=== PATIENT | female | born 1975 | race Caucasian/White ===

== ENCOUNTER 2017-08-18 14:04 | Emergency (ER) | payer OTHER, MEDICAID, SELFPAY | END 2017-08-18 18:08 | disposition home or self-care (01) | PROVIDERS: Emergency Provider Emergency Medicine; Family Provider Family Medicine; PCP Family Medicine; Visit Provider Emergency Medicine | DX: N20.0 Calculus of kidney (principal) | CPT/HCPCS: 74176; 80053; 81003; 81015; 81025; 85025; 85610; 85730; 96374; 96375; 99058; 99284; J1885; J2405 ==

== ENCOUNTER 2020-03-27 13:30 | Observation (INO) | payer OTHER, MEDICAID, SELFPAY ==
[2020-03-27] VITALS (14 sets, daily range): BP systolic 116–152; BP diastolic 75–91; PULSE 66–80; RESP 9–18; TEMP 36–37.1; O2SAT 93–99; BMI 36.3
--- NOTE | 2020-03-27 13:45 | DI.RAD.S_ITS ---
PROCEDURE: XR FINGER LT MIN 2V INDICATIONS: WOOD SPLITTER INJURY TO DIGIT 5 TECHNIQUE: PA view of the hand and two views of the left small finger. COMPARISON: [facility], , FINGER LT, 10/24/2007, 15:26. FINDINGS: Bones: There is a comminuted fracture at the midshaft of the 5th proximal phalanx with mild dorsal angulation of the distal fragment. The remaining osseous structures are intact. No suspicious bony lesions. Soft tissues: No suspicious soft tissue calcifications. Soft tissue edema is seen surrounding the fracture. IMPRESSION: Comminuted fracture at the midshaft of the 5th proximal phalanx with mild dorsal angulation of the distal fracture fragment and surrounding soft tissue edema. Dictated by: Torin Garcia M.D. on 03/27/2020 at 14:17 Approved by: Torin Garcia M.D. on 03/27/2020 at 14:24
--- NOTE | 2020-03-27 13:59 | ED.GENADULT ---
HPI - General Adult General Chief complaint: Extremity Injury, Upper Stated complaint: Cut left finger Time Seen by Provider: 03/27/20 13:48 Source: patient Mode of arrival: Ambulatory Limitations: no limitations History of Present Illness HPI narrative: Patient is a [id number] female here for evaluation of a left hand injury. She states she was cutting wood with a hydraulic hardwood flooring specialist when she got her left hand caught. Has pain along the left little finger and left portion of her hand. She also sustained a small cut to the area. States that her last tetanus shot was many years ago. Has not tried anything for her symptoms prior to arrival accept covering with a bandage. Related Data Home Medications Medication Instructions Recorded Confirmed sertraline [Zoloft] 50 mg PO QDAY #0 10/24/07 buspirone 0.5 tab PO QDAY #0 08/18/17 meloxicam [Mobic] 15 mg PO AMCC #0 08/18/17 Previous Rx's Medication Instructions Recorded ketorolac 10 mg PO Q6HP PRN #15 tab 08/15/17 tamsulosin [Flomax] 0.4 mg PO QDAY #10 cap 08/15/17 hydrocodone-acetaminophen [[place]] 1 - 2 tab PO Q6HP PRN #10 tab 08/18/17 ondansetron [Zofran ODT] 4 mg SUBLINGUAL Q6HP PRN #10 odt 08/18/17 Allergies Allergy/AdvReac Type Severity Reaction Status Date / Time Sulfa (Sulfonamide Allergy Unknown Verified 03/27/20 15:19 Antibiotics) [SULFA (SULFONAMIDE ANTIBIOTICS)] sulfamethoxazole Allergy Unknown Verified 03/27/20 15:19 [From ] trimethoprim [From ] Allergy Unknown Verified 03/27/20 15:19 SULFA (sulfonamide) Allergy Unknown Uncoded 03/27/20 15:19 Review of Systems Constitutional Constitutional: Denies fever(s) and Denies headache(s) ENT Ears, Nose, Mouth, and Throat: Denies headache(s) Musculoskeletal Musculoskeletal: Denies tingling Comments: Left hand pain Integumentary/Breasts Comments: Cut to the left little finger Neurologic Neurologic: Denies headache(s) and Denies tingling Hematologic/Lymphatic Hematologic/Lymphatic: Denies easy bleeding and Denies easy bruising Patient History Medical History Kidney stone on right side Social History Smoking Status: Current every day smoker Smoking Status: Current every day smoker Substance Use Type: does not use Exam Initial Vital Signs Initial Vital Signs: Vital Signs Temperature 98.7 F 03/27/20 13:39 Pulse Rate 78 03/27/20 13:39 Respiratory Rate 16 03/27/20 13:39 Blood Pressure 138/83 03/27/20 13:39 Pulse Oximetry 98 03/27/20 13:39 Const General: cooperative and comfortable Limitations: mental status not altered HENMT Head: normal to inspection and normocephalic Resp Effort & Inspection: normal respiratory effort Cardio Pulses: radial pulses present on the left Skin Other: Patient has to be what appears to be a superficial cut on the dorsum of the left little finger and what appears to be a 1 cm deeper laceration to the volar aspect of the left little finger. Neuro Sensory Exam: no sensory deficits noted Extrem Other: Tenderness along the left little finger along the metacarpal on left. With limited range of motion secondary to discomfort and some swelling Psych Appearance: grossly normal and well kempt Course Orders Ordered: ED Orders 03/27/20 13:45 XR finger LT min 2V Stat 03/27/20 15:05 COVID19 Stat 03/27/20 15:25 Basic Metabolic Panel Stat Complete Blood Count AUTO DIFF Stat Sodium Chloride (Normal Saline 0.9%) 1,000 mls @ 125 mls/hr IV CONT LYNNETTE Last Admin: 03/27/20 15:49 Dose: 125 mls/hr Documented by: CALVIN Discontinued Medications Diphtheria/Tetanus/Acell Pertussis (Tet,Diph,Pertuss(Acell),Vac/Pf 0.5 Ml Syringe) 0.5 ml IM .ONCE ONE Stop: 03/27/20 13:50 Last Admin: 03/27/20 15:48 Dose: 0.5 ml Documented by: CALVIN Cefazolin Sodium/Dextrose (Ancef) 2 gm in 100 mls @ 200 mls/hr IV NOW ONE Stop: 03/27/20 16:14 Last Admin: 03/27/20 15:50 Dose: 200 mls/hr Documented by: CALVIN Morphine Sulfate (Morphine 4 Mg/Ml Inj) 4 mg IV NOW ONE Stop: 03/27/20 14:52 Last Admin: 03/27/20 15:48 Dose: 4 mg Documented by: CALVIN Vital Signs Vital signs: Vital Signs - 8 hr 03/27/20 13:39 Temperature 98.7 F Pulse Rate 78 Respiratory Rate 16 Blood Pressure 138/83 Pulse Oximetry 98 Medical Decision Making Lab Data Lab results reviewed: Yes I reviewed the patient's lab results. Result diagrams: 03/27/20 15:25 03/27/20 15:25 Labs: Lab Results 03/27/20 Range/Units 15:05 COVID-19 PCR Negative (Negative) Imaging Data Extremity x-ray #1: Radiologist's Impression: [address] [id number] ReportSigned Patient: Ly Arthur LMR#: [id number]: [id number]:[id number]/Sex: 44 / FDate of Service: 03/27/20Loc: EDAccession Number: [id number] Procedure: XR finger LT min 2V Ordering Provider: Juaquin Conde D.O. PROCEDURE: XR FINGER LT MIN 2V INDICATIONS: WOOD SPLITTER INJURY TO DIGIT 5 TECHNIQUE: PA view of the hand and two views of the left small finger. [facility] FINDINGS: Bones: There is a comminuted fracture at the midshaft of the 5th proximal phalanx with mild dorsal angulation of the distal fragment. The remaining osseous structures are intact. No suspicious bony lesions. Soft tissues: No suspicious soft tissue calcifications. Soft tissue edema is seen surrounding the fracture. IMPRESSION: Comminuted fracture at the midshaft of the 5th proximal phalanx with mild dorsal angulation of the distal fracture fragment and surrounding soft tissue edema. Dictated by: Torin Garcia M.D. on 03/27/2020 at 14:17 Approved by: Torin Garcia M.D. on 03/27/2020 at 14:24 [facility] Narrative Medical decision making narrative: Patient's tetanus was updated. The x-ray shows a comminuted fracture of the proximal phalanx of the left little finger. She does have skin wounds on both the volar and dorsal aspect over the fracture. The 1 on the dorsal aspect does appear to be superficial however with inspection of the volar aspect it does appear to be through the skin and given the fracture the concern would be for an open fracture. I did discuss the case with Dr. Allison with Orthopedics who stated that the patient would need a washout and pinning. She was given antibiotics. Patient was informed of the findings and the need for surgery. She was placed NPO. Given pain medication. Will be admitted for surgery for further evaluation and treatment. Discharge Plan Departure Patient Disposition: Admitted as Observation Clinical Impression: Fracture of finger of left hand Qualifiers: Encounter type: initial encounter Finger: little finger Fracture type: open Phalanx: proximal Fracture alignment: displaced Qualified Code(s): S62.617B - Displaced fracture of proximal phalanx of left little finger, initial encounter for open fracture Admit Date/Time: 03/27/20 15:14 Admit Provider: Bandar Allison
[2020-03-27 15:36] LABS: Add Manual Diff / Slide Review NO; Basophils Absolute Auto 0 /uL (0-100); Basophils Percent Auto 0.5 % (0-2); Eosinophils Absolute Auto 100 /uL (0-450); Eosinophils Percent Auto 1.1 % (2-4); Hematocrit 42.7 % (36-46); Hemoglobin 14.7 g/dL (12.0-16.0); Lymphocytes Absolute Auto 3100 /uL (1100-4500); Lymphocytes Percent Auto 34.7 % (25-40); Mean Corpuscular HGB Conc 34.5 % (30-36); Mean Corpuscular Hemoglobin 31.3 PG (26-34); Mean Corpuscular Volume 90.7 fL (80-100); Monocytes Absolute Auto 600 /uL (0-900); Monocytes Percent Auto 7.1 % (3-14); Neutrophils Absolute Auto 5000 /uL (1500-7000); Neutrophils Percent Auto 56.6 % (50-75); Platelet Count 207 X10^3/uL (150-400); Red Blood Cell Count 4.71 X10^6/uL (4.0-5.2); Red Cell Distribution Width 13.1 % (11.6-14.8); White Blood Cell Count 8.9 X10^3/uL (4.5-11.0)
[2020-03-27] MEDS: MORPHINE 4 MG/ML INJ IV (15:48)
[2020-03-27] MEDS: TET,DIPH,PERTUSS(ACELL),VAC/PF 0.5 ML SYRINGE IM (15:48)
[2020-03-27] MEDS: SODIUM CHLORIDE 0.9% 1,000 ML 125 ML IV (15:49)
[2020-03-27] MEDS: CEFAZOLIN 2 GM/100 ML FROZ.PIGGY IV (15:50)
[2020-03-27 15:52] LABS: BUN Creatinine Ratio 26.5 (6-22); Blood Urea Nitrogen 13 mg/dL (7-17); Calcium 10.1 mg/dL (8.4-10.2); Carbon Dioxide 25 mmol/L (22-32); Chloride 108 mmol/L (98-107); Estimated Glomerular Filt Rate > 60.0 mL/min (>60); Glucose 101 mg/dL (70-100); HEMOLYSIS < 15 (0-50); Sodium 139 mmol/L (137-145)
[2020-03-27 15:52] LABS: COVID19 -Nasal RAPID Negative (Negative)
--- NOTE | 2020-03-27 18:02 | PM.HP.1 ---
History of Present Illness History of Present Illness Date Patient Seen: 03/27/20 Time Patient Seen: 18:03 Date of Onset of Symptoms: 03/27/20 Chief complaint: Cut left finger Narrative: Patient is a 44-year-old xhlij-ybkv-[id number] woman who was using a wood splitter today when she got her left hand caught between the wedge and the base plate. She suffered an open wound to her small finger. She came to the [facility] radiographs revealed a comminuted fracture of the mid shaft of her proximal phalanx of her left small finger. Orthopedic consultation has been obtained for definitive management of the open fracture. Patient History Medical History Kidney stone on right side Family & Social History Safety & Behavioral: Feels Safe in Current Yes Environment Been Physically Hurt or No Threatened By a Person Tobacco & Substance use: Smoking Status Current every day smoker Substance Use Type does not use Meds Home Medications and Allergies Home Medications Medication Instructions Recorded Confirmed Type sertraline [Zoloft] 50 mg PO QDAY #0 10/24/07 History ketorolac 10 mg PO Q6HP PRN #15 tab 08/15/17 Rx tamsulosin [Flomax] 0.4 mg PO QDAY #10 cap 08/15/17 Rx buspirone 0.5 tab PO QDAY #0 08/18/17 History hydrocodone-acetaminophen [[place]] 1 - 2 tab PO Q6HP PRN #10 tab 08/18/17 Rx meloxicam [Mobic] 15 mg PO AMCC #0 08/18/17 History ondansetron [Zofran ODT] 4 mg SUBLINGUAL Q6HP PRN #10 odt 08/18/17 Rx hydrocodone-acetaminophen [[place]] 1 tab PO Q4-6H PRN #20 tab 03/27/20 Rx Allergies Allergy/AdvReac Type Severity Reaction Status Date / Time Sulfa (Sulfonamide Allergy Unknown Verified 03/27/20 15:19 Antibiotics) [SULFA (SULFONAMIDE ANTIBIOTICS)] sulfamethoxazole Allergy Unknown Verified 03/27/20 15:19 [From SEPTRA] trimethoprim [From JANRA] Allergy Unknown Verified 03/27/20 15:19 SULFA (sulfonamide) Allergy Unknown Uncoded 03/27/20 15:19 Review of Systems Review of Systems ROS: Yes All systems reviewed with the patient and are negative except as otherwise documented Exam Vital Signs (past 8 hours): - 03/27/20 13:39 Temperature 98.7 F Pulse Rate 78 Respiratory Rate 16 Blood Pressure 138/83 Pulse Oximetry 98 Oxygen Delivery Method Room Air Narrative Exam Narrative: Normocephalic atraumatic. Chest is clear to auscultation. Cardiac exam is regular rate and rhythm. Abdomen is soft nontender with normal bowel bowel sounds and no palpable masses. Extremities examination is notable for the left upper extremity. The small finger is splinted and dressed in a sterile dressing. She has intact but slightly reduced sensation on both the radial and ulnar side of the tip of the small finger. Objective Labs Result Diagrams: 03/27/20 15:25 03/27/20 15:25 Labs: Laboratory Results - last 24 hr 03/27/20 03/27/20 03/27/20 15:05 15:25 15:25 WBC 8.9 RBC 4.71 Hgb 14.7 Hct 42.7 MCV 90.7 MCH 31.3 MCHC 34.5 RDW 13.1 Plt Count 207 Neut % (Auto) 56.6 Lymph % (Auto) 34.7 [place] % (Auto) 7.1 Eos % (Auto) 1.1 L Baso % (Auto) 0.5 Neut # (Auto) 5000 Lymph # (Auto) 3100 [place] # (Auto) 600 Eos # (Auto) 100 Baso # (Auto) 0 Sodium 139 Potassium 4.0 Chloride 108 H Carbon Dioxide 25 BUN 13 Creatinine 0.49 L Estimated GFR > 60.0 BUN/Creatinine Ratio 26.5 H Glucose 101 H Calcium 10.1 COVID-19 PCR Negative Assessment & Plan Assessment & Plan narrative: The patient has an open fracture of the left small finger proximal phalanx. Her neurovascular status appears to be intact grossly. Her tetanus status has been confirmed is up-to-date by the emergency room staff. We will irrigate and debride the wound, likely fix the fracture with crossed K-wires. She will then be splinted. K-wire should remain in place for 4 weeks. The risks benefits and alternatives of this procedure were discussed with her. Risks discussed included but were not limited to: Failure to improve, failure to heal the fracture, stiffness, infection, nerve damage, deep venous thrombosis, pulmonary embolism, stroke, myocardial infarction, permanent paralysis and . COVID-19 COVID-19 status: Negative Result date/Date tested (Pos, Neg/Pending): 03/27/20
[2020-03-27] MEDS: CEFAZOLIN 1 GM/50 ML FROZ.PIGGY IV (18:50)
--- NOTE | 2020-03-27 19:12 | SUR.OPER ---
Supine on padded OR bed, head on pillow, right arm secured on padded arm board at <90 degrees abduction, left arm on large padded arm board controlled by surgeon, legs uncrossed, safety belt at thigh, tape over blanket over lower legs.
[2020-03-27] MEDS: BUPIVACAINE 0.5% (PF) VIAL 30 ML INJ (19:17)
--- NOTE | 2020-03-27 19:42 | PM.OP.1 ---
Operative Date/Time/Diagnoses Date of procedure: 03/27/20 Time of procedure: 19:42 Pre-op diagnosis: Open displaced fracture of left small finger proximal phalanx Post-op diagnosis: other (Closed displaced fracture of left small finger proximal phalanx with skin lacerations) Procedure & Clinicians Procedure: 1. Percutaneous fixation of left small finger proximal phalanx fracture 2. Irrigation and debridement of soft tissue laceration 3. Simple closure of 1 cm wound Same procedure as scheduled: No (The wound did not communicate with the fracture.) Indications: The patient is a 44-year-old woman who was using a wood splitter today when she suffered an injury to the small finger of her left hand. This was initially thought to be an open fracture and therefore urgent irrigation and debridement was scheduled. She agreed to surgery after discussion the risks benefits and alternatives as discussed in my preoperative history and physical. Surgeon: Bandar Allison Click Yes if Unassisted: Yes Anesthesia Type: General and Local Operative Notes Findings: 1 cm wound on the palmar and 1 cm wound on the dorsal aspect of the small finger which did not extend below the dermis. There was a comminuted displaced fracture of the proximal phalanx which was reduced and fixed with 2 K-wires. Closure Type: primary Specimen(s): none sent Prosthetic devices, grafts, tissues, transplants, or devices: Two 0.054 in K-wires. Applied: implant(s) Estimated Blood Loss (mL): 1 Blood products transfused: none Tourniquet time (min): 17 Procedure in detail: The patient was seen in the emergency room where she identified the left small finger as the operative site. She was transferred to the operating room and placed in the operative room table in the supine position. She underwent the induction of general anesthetic. She had received antibiotics in the emergency room and received an additional 1 g of Ancef preoperatively in the OR. A multimedia educational specialist-out was performed. The splint was removed and a tourniquet was placed about her proximal forearm. The hand was prepared from the fingertips to the forearm using Betadine due to the open wounds. The hand was then draped through sterile drapes. The hand was elevated to exsanguinate it and the tourniquet inflated to 250 mm of mercury. The wounds were explored and found to be superficial and without extension deep to the dermis. These were irrigated. The dorsal wounds had a flap of epidermis that was removed and was then basically an abrasion. This was not closed. The palmar wound was more of a laceration measuring about a cm in length and this was closed with a single 3-0 nylon suture at the end of the case. Two 0.054 in K-wires were then placed from distal to proximal across the fracture site while the fracture was held reduced. These provided satisfactory stabilization of the fracture and the entire proximal phalanx moved as a single unit when I flexed and extended the finger. These wires were then bent and cut. All the wounds were dressed with Xeroform. A digital nerve block was performed with 10 mL of 0.5% plain Marcaine. Further dressings of sterile 4x4s, and tube gauze were applied followed by a splint. The tourniquet was deflated during dressing placement for a total tourniquet time of 17 minutes. The patient was then transferred to the recovery room in good condition having tolerated the procedure well. Complications: none Post-operative Condition: stable Disposition: PACU Plan for aftercare: The patient will be discharged this evening. She has been given [place] and Keflex for postoperative pain control and potential wound infection. She will have the K-wires removed in 4 weeks. The sutures will be removed 2 weeks and she will be replaced in the splint. At 4 weeks we will initiate occupational therapy for stiffness.
[2020-03-27] MEDS: fentaNYL 100 MCG/2 ML INJ IV ×2 (19:50→20:00)
[2020-03-27] MEDS: OXYCODONE/ACETAMINOPHEN 5/325 TABLET 1 TAB PO (19:57)
--- NOTE | 2020-04-24 14:57 | PC.NURSE ---
Late entry: IV NS discontinued 1825 hrs.
== END 2020-03-27 20:45 | disposition home or self-care (01) ==
LOC: ED 14:56 → AC 15:18
PROVIDERS: Admitting Provider Orthopaedic Surgery; Emergency Provider Emergency Medicine; Family Provider Family Medicine; PCP Family Medicine; Referring Provider Emergency Medicine; Visit Provider Orthopaedic Surgery
PROC: (CPT 26727; principal; 2020-03-27 19:00)
DX: S62.617A Displaced fracture of proximal phalanx of left little finger, initial encounter for closed fracture (principal); M79.642 Pain in left hand; S61.217A Laceration without foreign body of left little finger without damage to nail, initial encounter; S61.412A Laceration without foreign body of left hand, initial encounter; E66.9 Obesity, unspecified; F17.210 Nicotine dependence, cigarettes, uncomplicated; W31.89XA Contact with other specified machinery, initial encounter; Y93.89 Activity, other specified; Z11.59 Encounter for screening for other viral diseases
CPT/HCPCS: 26727; 12001; 36415; 73140; 80048; 85025; 87635; 90471; 96365; 96366; 96375; 99283; 99284; G0378; 90715; J0690; J1100; J2270; J2405; J2704; J2765; J3010

== ENCOUNTER 2020-08-11 10:07 | Emergency (ER) | payer OTHER, MEDICAID, SELFPAY ==
[2020-08-11 10:19] VITALS: BP 136/69; PULSE 92; RESP 18; TEMP 36.9; O2SAT 98; BMI 37.2
[2020-08-11 10:38] LABS: Add Manual Diff / Slide Review NO; Basophils Absolute Auto 0 /uL (0-100); Basophils Percent Auto 0.3 % (0-2); Eosinophils Absolute Auto 0 /uL (0-450); Eosinophils Percent Auto 0.1 % (2-4); Hematocrit 42.8 % (36-46); Hemoglobin 14.7 g/dL (12.0-16.0); Lymphocytes Absolute Auto 1400 /uL (1100-4500); Lymphocytes Percent Auto 10.2 % (25-40); Mean Corpuscular HGB Conc 34.2 % (30-36); Mean Corpuscular Hemoglobin 31.5 PG (26-34); Mean Corpuscular Volume 91.8 fL (80-100); Monocytes Absolute Auto 900 /uL (0-900); Monocytes Percent Auto 6.4 % (3-14); Neutrophils Absolute Auto 11100 /uL (1500-7000); Platelet Count 186 X10^3/uL (150-400); Red Blood Cell Count 4.66 X10^6/uL (4.0-5.2); Red Cell Distribution Width 12.6 % (11.6-14.8); White Blood Cell Count 13.4 X10^3/uL (4.5-11.0)
--- NOTE | 2020-08-11 10:42 | ED_ITS ---
HPI - Abdominal Pain General Chief Complaint: Abdominal Pain Stated Complaint: LOWER ABDOMINAL PAIN FOR 3 DAYS, WORSENING Time Seen by Provider: 08/11/20 10:10 Source: patient Mode of arrival: Family Vehicle Limitations: no limitations History of Present Illness HPI narrative: 44-year-old female daily smoker with noncontributory medical history presents with a chief complaint of 3 days of gradually worsening left lower quadrant pain. Her pain was gradual in onset and has been gradually worsening. Her pain is worse with motion and improves with rest. She denies any radiation of her pain. She states that even bumps in the road on her drive in seem to worsen her symptoms. She has been nauseated but denies any vomiting. She denies any constipation or diarrhea. She denies dysuria, frequency or urgency. She has had no vaginal bleeding or discharge MD complaint: abdominal pain Onset (ago): day(s) Pain Consistency: constant Location: LLQ Severity: moderate Quality: aching Radiation: none Related Data Home Medications Medication Instructions Recorded Confirmed sertraline [Zoloft] 100 mg PO QDAY #0 10/24/07 08/11/20 buspirone 0.5 tab PO QDAY #0 08/18/17 meloxicam [Mobic] 15 mg PO AMCC #0 08/18/17 Previous Rx's Medication Instructions Recorded ketorolac 10 mg PO Q6HP PRN #15 tab 08/15/17 tamsulosin [Flomax] 0.4 mg PO QDAY #10 cap 08/15/17 hydrocodone-acetaminophen [Cavalier] 1 - 2 tab PO Q6HP PRN #10 tab 08/18/17 ondansetron [Zofran ODT] 4 mg SUBLINGUAL Q6HP PRN #10 odt 08/18/17 hydrocodone-acetaminophen [Cavalier] 1 tab PO Q4-6H PRN #20 tab 03/27/20 amoxicillin-pot clavulanate 1 tab PO BID #20 tab 08/11/20 [Augmentin] hydrocodone-acetaminophen 1 tab PO Q4-6H PRN #10 tab 08/11/20 hyoscyamine sulfate 0.125 mg PO BID-QID PRN #20 tab 08/11/20 ondansetron 4 mg PO TID-QID PRN #10 tab 08/11/20 Allergies Allergy/AdvReac Type Severity Reaction Status Date / Time Sulfa (Sulfonamide Allergy Unknown Verified 08/11/20 10:18 Antibiotics) [SULFA (SULFONAMIDE ANTIBIOTICS)] sulfamethoxazole Allergy Unknown Verified 08/11/20 10:18 [From ] trimethoprim [From ] Allergy Unknown Verified 08/11/20 10:18 Review of Systems Constitutional Constitutional: Denies chills, Denies fatigue, Denies fever(s), Denies frequent falls, Denies lethargy and Denies weakness Eyes Eyes: Denies change in vision, Denies eye discharge, Denies irritation and Denies loss of vision ENT Ears, Nose, Mouth, and Throat: Denies change in voice, Denies dizziness, Denies neck pain, Denies sore throat and Denies throat swelling Cardiovascular Cardiovascular: Denies chest pain, Denies irregular heart rhythm, Denies lightheadedness, Denies palpitations, Denies dyspnea, Denies dyspnea on exertion and Denies orthopnea Respiratory Respiratory: Denies cough, Denies dyspnea, Denies dyspnea on exertion and Denies wheezing Gastrointestinal Gastrointestinal: Reports abdominal pain, Denies change in bowel habits, Denies diarrhea, Denies nausea and Denies vomiting Musculoskeletal Musculoskeletal: Denies neck pain and Denies numbness Integumentary/Breasts Skin/Breast: Denies pruritus, Denies erythema, Denies rash and Denies wounds Neurologic Neurologic: Denies behavioral changes, Denies confusion, Denies dizziness, Denies frequent falls, Denies loss of vision, Denies numbness and Denies weakness Psychiatric Psychiatric: Denies anxiety, Denies behavioral changes, Denies confusion, Denies depression, Denies homicidal ideation and Denies suicidal ideation Endocrine Endocrine: Denies fatigue, Denies flushing and Denies palpitations Hematologic/Lymphatic Hematologic/Lymphatic: Denies easy bruising Allergic/Immunologic Allergic/Immunologic: Denies urticaria, Denies throat swelling and Denies wheezing Patient History Medical History Kidney stone on right side Social History Smoking Status: Current every day smoker Smoking Status: Current every day smoker tobacco type: cigarettes alcohol intake frequency: 0-2 drinks per day Substance Use Type: does not use Exam Narrative Exam Narrative: GENERAL: 44 [] year old patient appears stated age. Well- nourished, well-developed patient, in mild distress. Obviously in pain, rubbing her left lower abdomen HEAD: Atraumatic. Normocephalic. EYES: Pupils equal round and reactive. Extraocular motions intact. No scleral icterus. No injection or drainage. ENT: Nose without bleeding, purulent drainage. Throat without erythema, tonsillar hypertrophy or exudate. Airway patent. NECK: Trachea midline. Non tender CARDIOVASCULAR: Regular rate and rhythm without murmurs, gallops, or rubs. RESPIRATORY: Clear to auscultation. Breath sounds equal bilaterally. No wheezes, rales, or rhonchi. GASTROINTESTINAL: Abdomen soft, tender left lower quadrant, no rebound, nondistended. EXTREMITIES: No edema or joint tenderness. BACK: Nontender without deformity or crepitance. No flank tenderness. NEURO: AOx3. SKIN: No rash or erythema of visible areas Initial Vital Signs Initial Vital Signs: Vital Signs Temperature 98.4 F 08/11/20 10:19 Pulse Rate 92 H 08/11/20 10:19 Respiratory Rate 18 08/11/20 10:19 Blood Pressure 136/69 08/11/20 10:19 Pulse Oximetry 98 08/11/20 10:19 Course Orders Ordered: Discontinued Medications Sodium Chloride (Normal Saline 0.9%) 1,000 mls @ 1,000 mls/hr IV BOLUS ONE Stop: 08/11/20 11:49 Last Infusion: 08/11/20 12:39 Dose: 0 mls/hr Documented by: Admin: 08/11/20 11:45 Dose: 1,000 mls/hr Documented by: KELSI Ketorolac Tromethamine (Ketorolac 60 Mg/2 Ml Vial) 15 mg IV NOW ONE Stop: 08/11/20 10:51 Last Admin: 08/11/20 11:46 Dose: 15 mg Documented by: KELSI Vital Signs Vital signs: Vital Signs - 8 hr 08/11/20 12:40 Pulse Rate 75 Respiratory Rate 18 Blood Pressure 121/67 Pulse Oximetry 98 MDM - Abdominal Pain Lab Data Result diagrams: 08/11/20 10:25 08/11/20 10:25 Labs: Lab Results 08/11/20 08/11/20 08/11/20 Range/Units 10:25 10:25 10:25 WBC 13.4 H (4.5-11.0) X10^3/uL RBC 4.66 (4.0-5.2) X10^6/uL Hgb 14.7 (12.0-16.0) g/dL Hct 42.8 (36-46) % MCV 91.8 (80-100) fL MCH 31.5 (26-34) PG MCHC 34.2 (30-36) % RDW 12.6 (11.6-14.8) % Plt Count 186 (150-400) X10^3/uL Neut % (Auto) 83.0 H (50-75) % Lymph % (Auto) 10.2 L (25-40) % [place] % (Auto) 6.4 (3-14) % Eos % (Auto) 0.1 L (2-4) % Baso % (Auto) 0.3 (0-2) % Neut # (Auto) 43793 H (1528-1367) /uL Lymph # (Auto) 1400 (4792-7708) /uL [place] # (Auto) 900 (0-900) /uL Eos # (Auto) 0 (0-450) /uL Baso # (Auto) 0 (0-100) /uL PT 12.1 (10.1-12.7) SECONDS INR 1.1 (0.9-1.3) APTT 38 H (26.4-36.2) SECONDS Sodium 138 (137-145) mmol/L Potassium 4.0 (3.4-5.1) mmol/L Chloride 105 (98-107) mmol/L Carbon Dioxide 24 (22-32) mmol/L BUN 12 (7-17) mg/dL Creatinine 0.45 L (0.52-1.04) mg/dL Estimated GFR > 60.0 (>60) mL/min BUN/Creatinine Ratio 26.7 H (6-22) Glucose 138 H (70-100) mg/dL Calcium 10.2 (8.4-10.2) mg/dL Total Bilirubin 1.0 (0.2-1.3) mg/dL AST 20 (14-36) IU/L ALT 23 (<35) IU/L Alkaline Phosphatase 65 (38-126) U/L Total Protein 7.4 (6.3-8.2) g/dL Albumin 4.4 (3.5-5.0) g/dL Globulin 3.0 (1.7-4.1) g/dL Albumin/Globulin Ratio 1.5 (1.0-2.8) Lipase 55 (23-300) U/L Point of care testing: Point of Care Testing Test Results Negative Urine Dip Bedside Urine Glucose Negative Bedside Urine Bilirubin - Negative Bedside Urine Ketone - Negative Urine Specific [place] 1.015 Bedside Urine Occult Blood - Negative Bedside Urine pH 8 Bedside Urine Protein - Negative Bedside Urine Urobilinogen - Negative Bedside Urine Nitrite - Negative Bedside Urine Leukocytes - Negative Esterase Imaging Data CT scan - abdomen/pelvis: Radiologist's Impression: [address] [id number] Scan ReportSigned Patient: Ly Arthur LMR#: [id number]: [id number]:[id number]/Sex: 44 / FDate of Service: 08/11/20Loc: EDAccession Number: [id number] Procedure: CT abdomen pelvis w con Ordering Provider: Tien Lloyd D.O. PROCEDURE: CT ABDOMEN PELVIS W CON INDICATIONS: severe LLQ pain TECHNIQUE: After the administration of intravenous contrast, 5 mm thick sections acquired from the diaphragm to the symphysis. 5 mm coronal and sagittal reformats were acquired. For radiation dose reduction, the following was used: automated exposure control, adjustment of mA and/or kV according to patient size. COMPARISON: None. FINDINGS: Image quality: Excellent. ABDOMEN: Lung bases: Lung bases are clear. Heart size is normal. Solid organs: Liver is normal in size and enhancement. Gallbladder wall is not thickened. Biliary system is non dilated. Pancreas enhances normally. Spleen is normal in size and enhancement. No adrenal nodules. Kidneys demonstrate normal size and enhancement, without hydronephrosis. Peritoneum and bowel: In this patient with this given history, scrutiny is given to the sigmoid colon and the left lower quadrant of the abdomen. There is focal wall thickening seen involving the sigmoid colon, with diverticular formation within this region. There is moderate surrounding inflammatory change seen. No tracy free air can be seen. A small amount of free fluid can be seen, yet without loculated fluid to suggest abscess. No dilated loops of small bowel are seen. No other areas of bowel wall thickening are detected. Nodes and vessels: No retroperitoneal or mesenteric adenopathy by size criteria. Aorta and inferior vena cava are normal in size. Miscellaneous: No ventral hernias. PELVIS: Genitourinary: Bladder wall thickness is normal. An IUD is seen at its e xpected location. Is a prominent right-sided uterine fibroid seen measuring nearly 9 cm. Miscellaneous: No inguinal hernias or adenopathy. Bones: No suspicious bony lesions. No vertebral body compression fractures. IMPRESSION: Sigmoid diverticulitis, without findings perforation or abscess. Incidental note is made of: IUD Prominent right-sided uterine fibroid Dictated by: Jaswant Rodriguez M.D. on 08/11/2020 at 10:55 Approved by: Jaswant Rodriguez M.D. on 08/11/2020 at 10:57 [facility] Narrative Medical decision making narrative: Patient with classic history and physical exam for diverticulitis. CT scan shows evidence of diverticulitis without abscess or perforation. Slight elevation of white blood cells but otherwise reassuring labs. Patient pain well controlled, vitals are stable, no signs of sepsis. She is given extensive return precautions and understands the diagnosis and plan. She has had questions answered to her apparent satisfaction Discharge Plan Departure Patient Disposition: Home Clinical Impression: Diverticulitis Instructions: DI for Diverticulitis Activity Restrictions/Additional Instructions: *You have been diagnosed with [mild diverticulitis without sign of abscess or perforation.] *What to do: *Take medications as directed: Prescription sent to [facility] * please consider a clear liquid diet for the next 24-48 hours and then advance slowly as tolerated *Follow up with your primary care provider in 2-3 days, call for an appointment. Let them know you were seen in the Emergency Department and that we ask that you be seen in follow up *Return to ER if you should have any new, worsening or concerning symptoms, such as [fever, shaking chills, worsening pain, persistent vomiting or other bothersome symptoms] Prescriptions: New hydrocodone-acetaminophen 5-325 mg tablet 1 tab PO Q4-6H PRN (Reason: pain) Qty: 10 RF: 0 hyoscyamine sulfate 0.125 mg tablet 0.125 mg PO BID-QID PRN (Reason: dyspepsia) Qty: 20 RF: 0 ondansetron 4 mg tablet,disintegrating 4 mg PO TID-QID PRN (Reason: nausea and vomiting) Qty: 10 RF: 0 amoxicillin-pot clavulanate [Augmentin] 875-125 mg tablet 1 tab PO BID Qty: 20 RF: 0 No Action sertraline [Zoloft] 50 MG tablet 100 mg PO QDAY Qty: 0 RF: 0 ketorolac 10 MG tablet 10 mg PO Q6HP PRNQty: 15 RF: 0 tamsulosin [Flomax] 0.4 MG capsule,extended release 24hr 0.4 mg PO QDAY Qty: 10 RF: 0 meloxicam [Mobic] 15 MG tablet 15 mg PO AMCC Qty: 0 RF: 0 buspirone 15 MG tablet 0.5 tab PO QDAY Qty: 0 RF: 0 hydrocodone-acetaminophen [Cavalier] 5 MG/325 MG tablet 1 - 2 tab PO Q6HP PRNQty: 10 RF: 0 ondansetron [Zofran ODT] 4 MG tablet,disintegrating 4 mg Sublingual Q6HP PRNQty: 10 RF: 0 hydrocodone-acetaminophen [Cavalier] 5-325 mg tablet 1 tab PO Q4-6H PRN (Reason: pain) Qty: 20 RF: 0 Referrals: Ginger Mancini ARNP [Primary Care Provider] -
--- NOTE | 2020-08-11 10:50 | DI.CT.S_ITS ---
PROCEDURE: CT ABDOMEN PELVIS W CON INDICATIONS: severe LLQ pain TECHNIQUE: After the administration of intravenous contrast, 5 mm thick sections acquired from the diaphragm to the symphysis. 5 mm coronal and sagittal reformats were acquired. For radiation dose reduction, the following was used: automated exposure control, adjustment of mA and/or kV according to patient size. COMPARISON: None. FINDINGS: Image quality: Excellent. ABDOMEN: Lung bases: Lung bases are clear. Heart size is normal. Solid organs: Liver is normal in size and enhancement. Gallbladder wall is not thickened. Biliary system is non dilated. Pancreas enhances normally. Spleen is normal in size and enhancement. No adrenal nodules. Kidneys demonstrate normal size and enhancement, without hydronephrosis. Peritoneum and bowel: In this patient with this given history, scrutiny is given to the sigmoid colon and the left lower quadrant of the abdomen. There is focal wall thickening seen involving the sigmoid colon, with diverticular formation within this region. There is moderate surrounding inflammatory change seen. No tracy free air can be seen. A small amount of free fluid can be seen, yet without loculated fluid to suggest abscess. No dilated loops of small bowel are seen. No other areas of bowel wall thickening are detected. Nodes and vessels: No retroperitoneal or mesenteric adenopathy by size criteria. Aorta and inferior vena cava are normal in size. Miscellaneous: No ventral hernias. PELVIS: Genitourinary: Bladder wall thickness is normal. An IUD is seen at its expected location. Is a prominent right-sided uterine fibroid seen measuring nearly 9 cm. Miscellaneous: No inguinal hernias or adenopathy. Bones: No suspicious bony lesions. No vertebral body compression fractures. IMPRESSION: Sigmoid diverticulitis, without findings perforation or abscess. Incidental note is made of: IUD Prominent right-sided uterine fibroid Dictated by: Jaswant Rodriguez M.D. on 08/11/2020 at 10:55 Approved by: Jaswant Rodriguez M.D. on 08/11/2020 at 10:57
[2020-08-11 11:00] LABS: INR 1.1 (0.9-1.3); Prothrombin Time 12.1 SECONDS (10.1-12.7)
[2020-08-11 11:02] LABS: PTT Partial Thromboplastin Tim 38 SECONDS (26.4-36.2)
[2020-08-11 11:04] LABS: Alanine Aminotransferase 23 IU/L (<35); Albumin 4.4 g/dL (3.5-5.0); Albumin Globulin Ratio 1.5 (1.0-2.8); Alkaline Phosphatase 65 U/L (38-126); Aspartate Aminotransferase 20 IU/L (14-36); BUN Creatinine Ratio 26.7 (6-22); Blood Urea Nitrogen 12 mg/dL (7-17); Calcium 10.2 mg/dL (8.4-10.2); Carbon Dioxide 24 mmol/L (22-32); Chloride 105 mmol/L (98-107); Estimated Glomerular Filt Rate > 60.0 mL/min (>60); Glucose 138 mg/dL (70-100); HEMOLYSIS < 15 (0-50); Lipase 55 U/L (23-300); Sodium 138 mmol/L (137-145); Total Protein 7.4 g/dL (6.3-8.2)
[2020-08-11] MEDS: SODIUM CHLORIDE 0.9% 1,000 ML 1000 ML IV (11:45)
[2020-08-11] MEDS: KETOROLAC 60 MG/2 ML VIAL 15 MG IV (11:46)
[2020-08-11 12:40] VITALS: BP 121/67; PULSE 75; RESP 18; O2SAT 98
== END 2020-08-11 12:41 | disposition home or self-care (01) ==
PROVIDERS: Emergency Provider Emergency Medicine; Family Provider Family Medicine; PCP Internal Medicine
DX: K57.92 Diverticulitis of intestine, part unspecified, without perforation or abscess without bleeding (principal); R11.0 Nausea
CPT/HCPCS: 36415; 74177; 80053; 81003; 81025; 83690; 85025; 85610; 85730; 93005; 96361; 96374; 99284; J1885; Q9967

== ENCOUNTER → 2020-08-17 10:37 | Outpatient (CLI) | payer OTHER, MEDICAID, SELFPAY ==
[2020-08-17] MEDS: COVID-19 VACC #1, MRNA(MOD) 100 MCG/0.5 ML VIAL IM (10:47)
== END ==
PROVIDERS: Family Provider Family Medicine; PCP Internal Medicine; Visit Provider Internal Medicine
DX: Z23 Encounter for immunization (principal)
CPT/HCPCS: 0011A; 91301

== ENCOUNTER → 2020-09-12 09:57 | Outpatient (CLI) | payer OTHER, MEDICAID, SELFPAY ==
[2020-09-12] MEDS: COVID-19 VACC #2, MRNA(MOD) 100 MCG/0.5 ML VIAL IM (10:11)
== END ==
PROVIDERS: Family Provider Family Medicine; PCP Internal Medicine; Visit Provider Internal Medicine
DX: Z23 Encounter for immunization (principal)
CPT/HCPCS: 0012A; 91301

== ENCOUNTER 2020-09-17 09:45 | Emergency (ER) | payer OTHER, MEDICAID, SELFPAY ==
[2020-09-17] VITALS (12 sets, daily range): BP systolic 105–136; BP diastolic 60–87; PULSE 67–85; RESP 14–16; TEMP 36.6–37; O2SAT 95–99; BMI 36.2
--- NOTE | 2020-09-17 09:48 | ED.ABDPAIN ---
HPI - Abdominal Pain General Chief Complaint: Abdominal Pain Stated Complaint: stomach pain, started yesterday afternoon Time Seen by Provider: 09/17/20 09:47 Source: patient Mode of arrival: Ambulatory Limitations: no limitations History of Present Illness HPI narrative: 44-year-old female daily smoker with recent history of diverticulitis presents with a chief complaint of 24 hours of severe left lower quadrant pain. She states it started suddenly yesterday and seems to be made worse by moving and improved by rest. She states on some levels of feels like what her diverticulitis did but is more intense and severe. She states that she had taken all of her medications as prescribed and her symptoms had resolved with her diverticulitis prior to the pain which brings her in today. She denies any vaginal bleeding or discharge. She denies dysuria, frequency or urgency. She denies any radiation of the pain, states that sharp and stabbing and is rather persistent. She denies fever chills, change in diet or any other new medications MD complaint: abdominal pain Onset (ago): hour(s) Pain Consistency: constant Location: LLQ Severity: severe Quality: stabbing Relieving factors: rest Exacerbating factors: movement Associated symptoms: nausea Related Data Home Medications Medication Instructions Recorded Confirmed sertraline [Zoloft] 100 mg PO QDAY #0 10/23/09/17/20 Previous Rx's Medication Instructions Recorded amoxicillin-pot clavulanate 1 tab PO BID #20 tab 09/17/20 [Augmentin] hydrocodone-acetaminophen 1 tab PO Q4-6H PRN #10 tab 09/17/20 ondansetron 4 mg PO TID-QID PRN #10 tab 09/17/20 Allergies Allergy/AdvReac Type Severity Reaction Status Date / Time Sulfa (Sulfonamide Allergy Unknown Verified 09/17/20 09:55 Antibiotics) [SULFA (SULFONAMIDE ANTIBIOTICS)] sulfamethoxazole Allergy Unknown Verified 09/17/20 09:55 [From ] trimethoprim [From ] Allergy Unknown Verified 09/17/20 09:55 Review of Systems Constitutional Constitutional: Denies chills, Denies fatigue, Denies fever(s), Denies frequent falls, Denies lethargy and Denies weakness Eyes Eyes: Denies change in vision, Denies eye discharge, Denies irritation and Denies loss of vision ENT Ears, Nose, Mouth, and Throat: Denies change in voice, Denies dizziness, Denies neck pain, Denies sore throat and Denies throat swelling Cardiovascular Cardiovascular: Denies chest pain, Denies irregular heart rhythm, Denies lightheadedness, Denies palpitations, Denies dyspnea, Denies dyspnea on exertion and Denies orthopnea Respiratory Respiratory: Denies cough, Denies dyspnea, Denies dyspnea on exertion and Denies wheezing Gastrointestinal Gastrointestinal: Reports abdominal pain, Denies change in bowel habits, Denies diarrhea, Denies nausea and Denies vomiting Musculoskeletal Musculoskeletal: Denies neck pain and Denies numbness Integumentary/Breasts Skin/Breast: Denies pruritus, Denies erythema, Denies rash and Denies wounds Neurologic Neurologic: Denies behavioral changes, Denies confusion, Denies dizziness, Denies frequent falls, Denies loss of vision, Denies numbness and Denies weakness Psychiatric Psychiatric: Denies anxiety, Denies behavioral changes, Denies confusion, Denies depression, Denies homicidal ideation and Denies suicidal ideation Endocrine Endocrine: Denies fatigue, Denies flushing and Denies palpitations Hematologic/Lymphatic Hematologic/Lymphatic: Denies easy bruising Allergic/Immunologic Allergic/Immunologic: Denies urticaria, Denies throat swelling and Denies wheezing Patient History Medical History Kidney stone on right side Social History Smoking Status: Current every day smoker Smoking Status: Current every day smoker tobacco type: cigarettes alcohol intake frequency: 0-2 drinks per day Substance Use Type: does not use Exam Initial Vital Signs Initial Vital Signs: Vital Signs Temperature 97.8 F 09/17/20 09:45 Pulse Rate 85 09/17/20 09:45 Respiratory Rate 14 09/17/20 09:45 Blood Pressure 124/87 09/17/20 09:45 Pulse Oximetry 99 09/17/20 09:45 Const General: cooperative and well developed Nutritional Appearance: well nourished [facility] Head: normocephalic and atraumatic Ears: external ears normal and TM's normal bilaterally Nose: external nose normal and No nasal discharge Face and sinus: sinuses nontender, face symmetric, no sinus tenderness and No dry mucous membranes Mouth: oral mucosae normal and moist mucous membranes Teeth and gingiva: dentition normal Throat: tonsils normal and uvula midline Eyes General: appearance normal, both eyes and all related structures Eyelids: eyelids normal Conjunctivae: conjunctivae normal Sclera: sclerae normal Pupils: PERRL EOM: EOM intact bilaterally Neck Neck: normal visual inspection, trachea midline, No lymphadenopathy, No midline deformity and No JVD Lymphatic: No lymphedema Chest Chest: normal inspection of the chest Resp Effort & Inspection: normal respiratory effort, able to speak in complete sentences, no respiratory distress and no use of accessory muscles Auscultation: clear to auscultation bilaterally, no rales, no rhonchi and no wheezes Cardio Rate: regular rate Rhythm: regular rhythm Heart Sounds: no click, no gallops, no murmurs and no rubs Pulses: normal peripheral pulses GI Inspection: non-distended Palpation: soft, no hepatosplenomegaly, No guarding, No pulsatile mass and tender (Left lower quadrant) Auscultation: normal bowel sounds Back/Spine/Pelvis Back: No CVA tenderness Cervical Spine: cervical ROM normal and No pain with cervical ROM Thoracic/Lumbar Spine: thoracic and lumbar spine normal to inspection Skin General: no rashes or lesions noted, No jaundice and No petechiae Neuro General: patient alert, patient oriented x3, gait normal and no focal motor deficits Speech: speech normal Extrem General: full ROM, no clubbing, cyanosis or edema, no pedal edema and no calf tenderness Psych Appearance: well kempt Mental Status: mental status grossly normal Attitude: cooperative Thought Content: normal and suicidality Judgment: judgment good Course Orders Ordered: ED Orders 09/17/20 10:10 Complete Blood Count AUTO DIFF Stat Comprehensive Metabolic Panel Stat Lipase Stat 09/17/20 10:42 CT abdomen pelvis w con Stat Discontinued Medications Hydromorphone HCl (Hydromorphone 0.5 Mg Inj) 0.5 mg IV NOW ONE Stop: 09/17/20 11:39 Last Admin: 09/17/20 11:43 Dose: 0.5 mg Documented by: ALYSIA Sodium Chloride (Normal Saline 0.9%) 1,000 mls @ 1,000 mls/hr IV BOLUS ONE Stop: 09/17/20 10:52 Last Infusion: 09/17/20 12:34 Dose: 0 mls/hr Documented by: Admin: 09/17/20 10:18 Dose: 1,000 mls/hr Documented by: KELSI Ketorolac Tromethamine (Ketorolac 30 Mg/Ml Vial) 15 mg IV NOW ONE Stop: 09/17/20 09:54 Last Admin: 09/17/20 10:18 Dose: 15 mg Documented by: KELSI Consultations Consultation #1: 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[place]), requests patient be given her contact info for follow up in clinic regarding the fibroid Vital Signs Vital signs: Vital Signs - 8 hr 09/17/20 11:28 09/17/20 11:29 09/17/20 11:30 Temperature Pulse Rate 71 71 74 Respiratory Rate 16 Blood Pressure 105/60 113/68 Pulse Oximetry 99 98 98 09/17/20 11:46 09/17/20 12:00 09/17/20 13:10 Temperature Pulse Rate 80 70 69 Respiratory Rate Blood Pressure 127/73 129/70 136/76 Pulse Oximetry 98 97 98 09/17/20 13:30 09/17/20 13:54 09/17/20 14:00 Temperature Pulse Rate 67 69 68 Respiratory Rate Blood Pressure 122/66 Pulse Oximetry 96 97 95 09/17/20 14:24 09/17/20 14:31 Temperature 98.6 F Pulse Rate 70 Respiratory Rate 16 Blood Pressure 122/65 Pulse Oximetry 99 MDM - Abdominal Pain Lab Data Result diagrams: 09/17/20 10:10 09/17/20 10:10 Labs: Lab Results 09/17/20 09/17/20 Range/Units 10:10 10:10 WBC 10.3 (4.5-11.0) X10^3/uL RBC 4.61 (4.0-5.2) X10^6/uL Hgb 14.5 (12.0-16.0) g/dL Hct 41.8 (36-46) % MCV 90.8 (80-100) fL MCH 31.5 (26-34) PG MCHC 34.7 (30-36) % RDW 12.6 (11.6-14.8) % Plt Count 226 (150-400) X10^3/uL Neut % (Auto) 69.0 (50-75) % Lymph % (Auto) 21.8 L (25-40) % [place] % (Auto) 7.9 (3-14) % Eos % (Auto) 1.0 L (2-4) % Baso % (Auto) 0.3 (0-2) % Neut # (Auto) 7100 H (6028-7830) /uL Lymph # (Auto) 2200 (4425-9355) /uL [place] # (Auto) 800 (0-900) /uL Eos # (Auto) 100 (0-450) /uL Baso # (Auto) 0 (0-100) /uL Sodium 137 (137-145) mmol/L Potassium 4.0 (3.4-5.1) mmol/L Chloride 106 (98-107) mmol/L Carbon Dioxide 25 (22-32) mmol/L BUN 9 (7-17) mg/dL Creatinine 0.45 L (0.52-1.04) mg/dL Estimated GFR > 60.0 (>60) mL/min BUN/Creatinine Ratio 20.0 (6-22) Glucose 103 H (70-100) mg/dL Calcium 10.5 H (8.4-10.2) mg/dL Total Bilirubin 1.2 (0.2-1.3) mg/dL AST 21 (14-36) IU/L ALT 26 (<35) IU/L Alkaline Phosphatase 71 (38-126) U/L Total Protein 7.6 (6.3-8.2) g/dL Albumin 4.4 (3.5-5.0) g/dL Globulin 3.2 (1.7-4.1) g/dL Albumin/Globulin Ratio 1.4 (1.0-2.8) Lipase 41 (23-300) U/L Point of care testing: Urine Dip Bedside Urine Glucose Negative Bedside Urine Bilirubin - Negative Bedside Urine Ketone - Negative Urine Specific [place] 1.010 Bedside Urine Occult Blood - Negative Bedside Urine pH 6.5 Bedside Urine Protein - Negative Bedside Urine Urobilinogen - Negative Bedside Urine Nitrite - Negative Bedside Urine Leukocytes - Negative Esterase Imaging Data CT scan - abdomen/pelvis: Radiologist's Impression: Ly Arthur 44 F [address] [id number] Scan ReportSigned Patient: Ly Arthur LMR#: [id number]: 1975Acct:[id number]/Sex: 44 / FDate of Service: 09/17/20Loc: EDAccession Number: [id number] Procedure: CT abdomen pelvis w con Ordering Provider: Tine Lloyd D.O. PROCEDURE: CT ABDOMEN PELVIS W CON INDICATIONS: severe LLQ pain, worse than a few weeks ago TECHNIQUE: After the administration of intravenous contrast, 5 mm thick sections acquired from the diaphragm to the symphysis. 5 mm coronal and sagittal reformats were acquired. For radiation dose reduction, the following was used: automated exposure control, adjustment of mA and/or kV according to patient size. COMPARISON: [facility], US, US PELVIC COMPLETE, 09/17/2020, 10:19. [facility], CT, CT ABDOMEN PELVIS W CON, 08/11/2020, 11:33. FINDINGS: Image quality: Excellent. ABDOMEN: Lung bases: Lung bases are clear. Heart size is normal. Solid organs: Liver is enlarged with steatosis. Gallbladder unremarkable. Biliary system is non dilated. Pancreas enhances normally. Spleen is normal in size and enhancement. No adrenal nodules. Kidneys demonstrate normal size and enhancement, without hydronephrosis. Peritoneum and bowel: Bowel loops demonstrate persistent appearance of inflammation in the left lower quadrant, affecting a loop of the sigmoid colon. Overall appearance is similar compared to prior exam. No abscess. Inflammation extends to the left ovary, which appears enlarged compared to the left side. While this was present on prior exam, appearance now demonstrates a more diffuse appearance of low attenuation compared to prior exam. Nodes and vessels: No retroperitoneal or mesenteric adenopathy by size criteria. Aorta and inferior vena cava are normal in size. Miscellaneous: No ventral hernias. PELVIS: Genitourinary: Bladder wall thickness is normal. Uterus is enlarged with lobulation. Miscellaneous: No inguinal hernias or adenopathy. Bones: No suspicious bony lesions. No vertebral body compression fractures. IMPRESSION: 1. Relatively unchanged appearance of sigmoid inflammatory change most suggestive of colitis. No abscess. Appearance is similar to prior exam. 2. Assymetric enlargement of the left ovary, with more prominent decreased attenatuion compared to prior exam. Development of ovarian inflammation or potentially tubo-ovarian abscess cannot be excluded. The findings were discussed with Dr. Tien Llyod on 09/17/2020 at 11:15 a.m. Dictated by: Aissatou Luu M.D. on 09/17/2020 at 10:59 Approved by: Aissatou Luu M.D. on 09/17/2020 at 11:29 US - abdomen: Radiologist's Impression: Ly Arthur 44 F [address] [id number] ReportAddendum Patient: Ly Arthur LMR#: [id number]: 1975Acct:[id number]/Sex: 44 / FDate of Service: 09/17/20Loc: EDAccession Number: [id number] Procedure: US pelvic complete Ordering Provider: Tien Lloyd D.O. ADDENDUMThis report includes an Addendum and supersedes previous reports for this exam. PROCEDURE: US PELVIC COMPLETE INDICATIONS: LEFT LOWER QUADRANT PAIN. EVALUATE IUD PLACEMENT. TECHNIQUE: Real-time scanning was performed of the pelvic organs, with image documentation. Additional endovaginal scanning was necessary due to incomplete visualization of the adnexal and endometrial structures by transabdominal scanning. COMPARISON: [facility], CT, CT ABDOMEN PELVIS W CON, 08/11/2020, 11:33. [facility], CT, CT ABDOMEN PELVIS W CON, 09/17/2020, 10:53. FINDINGS: This study is limited by body habitus and bowel gas. Uterus: Uterus is enlarged at 12.6 x 9.6 x 6.5 cm. The endometrial stripe is not well seen, secondary to a fibroid. The IUD is also not well seen, secondary to the fibroid. There is a 7 x 7.8 x 7.4 cm fibroid seen within the mid uterus intramural. Ovaries: Neither ovary is well seen. Other: No pathologic free abdominal or pelvic fluid. IMPRESSION: The IUD is not well seen on this study. Enlarged uterus, with a 7.8 cm uterine fibroid. Dictated by: Jaswant Rodriguez M.D. on 09/17/2020 at 10:16 Approved by: Jaswant Rodriguez M.D. on 09/17/2020 at 10:18 ADDENDUM: Additional images of the left adnexal region were acquired. On these additional images, no findings of a tubo-ovarian abscess can be seen. Dictated by: Jaswant Rodriguez M.D. on 09/17/2020 at 13:11 Approved by: Jaswant Rodriguez M.D. on 09/17/2020 at 13:11 Addendum Dictated By:Jaswant Rodriguez MDAddendum Signed By:Addendum Cosigned By:DD/ TD/TT: 09/17/20 PROCEDURE: US PELVIC COMPLETE INDICATIONS: LEFT LOWER QUADRANT PAIN. EVALUATE IUD PLACEMENT. TECHNIQUE: Real-time scanning was performed of the pelvic organs, with image documentation. Additional endovaginal scanning was necessary due to incomplete visualization of the adnexal and endometrial structures by transabdominal scanning. COMPARISON: [facility], CT, CT ABDOMEN PELVIS W CON, 08/11/2020, 11:33. [facility], CT, CT ABDOMEN PELVIS W CON, 09/17/2020, 10:53. FINDINGS: This study is limited by body habitus and bowel gas. Uterus: Uterus is enlarged at 12.6 x 9.6 x 6.5 cm. The endometrial stripe is not well seen, secondary to a fibroid. The IUD is also not well seen, secondary to the fibroid. There is a 7 x 7.8 x 7.4 cm fibroid seen within the mid uterus intramural. Ovaries: Neither ovary is well seen. Other: No pathologic free abdominal or pelvic fluid. IMPRESSION: The IUD is not well seen on this study. Enlarged uterus, with a 7.8 cm uterine fibroid. Dictated by: Jaswant Rodriguez M.D. on 09/17/2020 at 10:16 Approved by: Jaswant Rodriguez M.D. on 09/17/2020 at 10:18 MDM Narrative Medical decision making narrative: Patient returns with recurrence of left lower quadrant pain which presented in a slightly more sudden onset and dramatic fashion this time. Multiple diagnoses including kidney stones, ovarian torsion among others considered. Imaging demonstrates a uterine fibroid, normal appearing ovaries, no kidney stones and the presence of colitis in the absence of any abscess, bowel obstruction or perforation. She is incomplete agreement with the diagnosis and plan. She understands return precautions. Her pain is well controlled, she is tolerating orals, questions been answered to her apparent satisfaction Discharge Plan Departure Patient Disposition: Home Clinical Impression: Colitis, Fibroid Instructions: DI for Colitis Activity Restrictions/Additional Instructions: *You have been diagnosed with [left lower quadrant pain likely due to colitis which is seen on imaging. 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 [ ] New medication prescriptions sent to your pharmacy: [ ] [ x] New medication written as a paper prescription [ ] No new medications given *Please follow up with your primary care provider in 2-3 days, call for an appointment. Let them know you were seen in the Emergency Department and that we ask that you be seen in follow up. We will electronically transmit a record of today's note if your PCP is in our system *If you do not have a primary care provider please contact the [facility] Resource line at [phone]. They will ask some questions about your medical history and help get you set up with a doctor in the community. *Return to Emergency Department if you should have any new, worsening or concerning symptoms, such as [fever greater than 101 F, shaking chills, worsening pain, persistent vomiting or other bothersome symptoms] Prescriptions: New hydrocodone-acetaminophen 5-325 mg tablet 1 tab PO Q4-6H PRN (Reason: pain) Qty: 10 RF: 0 ondansetron 4 mg tablet,disintegrating 4 mg PO TID-QID PRN (Reason: nausea and vomiting) Qty: 10 RF: 0 amoxicillin-pot clavulanate [Augmentin] 875-125 mg tablet 1 tab PO BID Qty: 20 RF: 0 No Action sertraline [Zoloft] 50 MG tablet 100 mg PO QDAY Qty: 0 RF: 0 Referrals: Johnna Jones MD [Physician] - Ginger Mancini ARNP [Primary Care Provider] -
--- NOTE | 2020-09-17 09:53 | DI.US.S_ITS ---
PROCEDURE: US PELVIC COMPLETE INDICATIONS: LEFT LOWER QUADRANT PAIN. EVALUATE IUD PLACEMENT. TECHNIQUE: Real-time scanning was performed of the pelvic organs, with image documentation. Additional endovaginal scanning was necessary due to incomplete visualization of the adnexal and endometrial structures by transabdominal scanning. COMPARISON: [facility], CT, CT ABDOMEN PELVIS W CON, 08/11/2020, 11:33. [facility], CT, CT ABDOMEN PELVIS W CON, 09/17/2020, 10:53. FINDINGS: This study is limited by body habitus and bowel gas. Uterus: Uterus is enlarged at 12.6 x 9.6 x 6.5 cm. The endometrial stripe is not well seen, secondary to a fibroid. The IUD is also not well seen, secondary to the fibroid. There is a 7 x 7.8 x 7.4 cm fibroid seen within the mid uterus intramural. Ovaries: Neither ovary is well seen. Other: No pathologic free abdominal or pelvic fluid. IMPRESSION: The IUD is not well seen on this study. Enlarged uterus, with a 7.8 cm uterine fibroid. Dictated by: Jaswant Rodriguez M.D. on 09/17/2020 at 10:16 Approved by: Jaswant Rodriguez M.D. on 09/17/2020 at 10:18
[2020-09-17] MEDS: SODIUM CHLORIDE 0.9% 1,000 ML 1000 ML IV (10:18)
[2020-09-17] MEDS: KETOROLAC 30 MG/ML VIAL 15 MG IV (10:18)
[2020-09-17 10:20] LABS: Add Manual Diff / Slide Review NO; Basophils Absolute Auto 0 /uL (0-100); Basophils Percent Auto 0.3 % (0-2); Eosinophils Absolute Auto 100 /uL (0-450); Hematocrit 41.8 % (36-46); Hemoglobin 14.5 g/dL (12.0-16.0); Lymphocytes Absolute Auto 2200 /uL (1100-4500); Lymphocytes Percent Auto 21.8 % (25-40); Mean Corpuscular HGB Conc 34.7 % (30-36); Mean Corpuscular Hemoglobin 31.5 PG (26-34); Mean Corpuscular Volume 90.8 fL (80-100); Monocytes Absolute Auto 800 /uL (0-900); Monocytes Percent Auto 7.9 % (3-14); Neutrophils Absolute Auto 7100 /uL (1500-7000); Platelet Count 226 X10^3/uL (150-400); Red Blood Cell Count 4.61 X10^6/uL (4.0-5.2); Red Cell Distribution Width 12.6 % (11.6-14.8); White Blood Cell Count 10.3 X10^3/uL (4.5-11.0)
[2020-09-17 10:33] LABS: Alanine Aminotransferase 26 IU/L (<35); Albumin 4.4 g/dL (3.5-5.0); Albumin Globulin Ratio 1.4 (1.0-2.8); Alkaline Phosphatase 71 U/L (38-126); Aspartate Aminotransferase 21 IU/L (14-36); Bilirubin Total 1.2 mg/dL (0.2-1.3); Blood Urea Nitrogen 9 mg/dL (7-17); Calcium 10.5 mg/dL (8.4-10.2); Carbon Dioxide 25 mmol/L (22-32); Chloride 106 mmol/L (98-107); Estimated Glomerular Filt Rate > 60.0 mL/min (>60); Globulin 3.2 g/dL (1.7-4.1); Glucose 103 mg/dL (70-100); HEMOLYSIS < 15 (0-50); Lipase 41 U/L (23-300); Sodium 137 mmol/L (137-145); Total Protein 7.6 g/dL (6.3-8.2)
--- NOTE | 2020-09-17 10:42 | DI.CT.S_ITS ---
PROCEDURE: CT ABDOMEN PELVIS W CON INDICATIONS: severe LLQ pain, worse than a few weeks ago TECHNIQUE: After the administration of intravenous contrast, 5 mm thick sections acquired from the diaphragm to the symphysis. 5 mm coronal and sagittal reformats were acquired. For radiation dose reduction, the following was used: automated exposure control, adjustment of mA and/or kV according to patient size. COMPARISON: [facility], US, US PELVIC COMPLETE, 09/17/2020, 10:19. [facility], CT, CT ABDOMEN PELVIS W CON, 08/11/2020, 11:33. FINDINGS: Image quality: Excellent. ABDOMEN: Lung bases: Lung bases are clear. Heart size is normal. Solid organs: Liver is enlarged with steatosis. Gallbladder unremarkable. Biliary system is non dilated. Pancreas enhances normally. Spleen is normal in size and enhancement. No adrenal nodules. Kidneys demonstrate normal size and enhancement, without hydronephrosis. Peritoneum and bowel: Bowel loops demonstrate persistent appearance of inflammation in the left lower quadrant, affecting a loop of the sigmoid colon. Overall appearance is similar compared to prior exam. No abscess. Inflammation extends to the left ovary, which appears enlarged compared to the left side. While this was present on prior exam, appearance now demonstrates a more diffuse appearance of low attenuation compared to prior exam. Nodes and vessels: No retroperitoneal or mesenteric adenopathy by size criteria. Aorta and inferior vena cava are normal in size. Miscellaneous: No ventral hernias. PELVIS: Genitourinary: Bladder wall thickness is normal. Uterus is enlarged with lobulation. Miscellaneous: No inguinal hernias or adenopathy. Bones: No suspicious bony lesions. No vertebral body compression fractures. IMPRESSION: 1. Relatively unchanged appearance of sigmoid inflammatory change most suggestive of colitis. No abscess. Appearance is similar to prior exam. 2. Assymetric enlargement of the left ovary, with more prominent decreased attenatuion compared to prior exam. Development of ovarian inflammation or potentially tubo-ovarian abscess cannot be excluded. The findings were discussed with Dr. Tien Lloyd on 09/17/2020 at 11:15 a.m. Dictated by: Aissatou Luu M.D. on 09/17/2020 at 10:59 Approved by: Aissatou Luu M.D. on 09/17/2020 at 11:29
[2020-09-17] MEDS: HYDROMORPHONE 0.5 MG INJ IV (11:43)
== END 2020-09-17 14:30 | disposition home or self-care (01) ==
PROVIDERS: Emergency Provider Emergency Medicine; Family Provider Family Medicine; PCP Internal Medicine
DX: K52.9 Noninfective gastroenteritis and colitis, unspecified (principal); D25.9 Leiomyoma of uterus, unspecified
CPT/HCPCS: 36415; 74177; 76830; 76856; 80053; 81003; 83690; 85025; 96361; 96374; 96375; 99284; J1170; J1885

== ENCOUNTER 2020-12-10 13:12 | Outpatient (RCR) | payer OTHER, MEDICAID, SELFPAY ==
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
--- NOTE | 2020-12-10 15:02 | PT.OPPOC ---
Physical, Occupational & Speech Therapy At [facility] Current Diagnoses Pain in right shoulder (12/10/20) Muscle weakness (generalized) (12/10/20) Pain in right arm (12/10/20) Visit Care Team Role Provider Type TONI Hager Attending Provider Advanced Supervisor Grinding Family Provider Primary Care Provider Referring Provider Specialty: Family Practice Address: [address] [place] [address], [facility] [place], [address] Email: [email or web address] Plan Of Care PT-OP-T Assessment and Plan Start: 12/10/20 12:18 Freq: Status: Active Protocol: Document 12/10/20 13:35 LRN (Rec: 12/10/20 14:57 LRN [id number]) Physical Therapy Assessment Rehab Potential Rehabilitation Potential Excellent Evaluation Complexity Number of Personal Factors/Comorbidities 1-2 Number of Body Systems Impaired 4 or More Clinical Presentation at Evaluation Evolving Impairments Impairments Activity Tolerance,Pain,ROM, Soft Tissue Mobility,Strength Goals Four Impairment Decreased R shoulder strength (R shoulder generally 3/5, L shoulder 5/5) Short Term Goal (STG) Improve R shoulder strength 1/ 2-1 grade with pt able to open jars without or mild difficulty. STG Duration 02/20/21 Head Transfer Clerk Goal (LTG) Improve R shoulder strength to no less than 4/5 with ability to carry and unpacking groceries without pain. LTG Duration 03/10/21 Three Impairment Decreased R shoulder AROM Short Term Goal (STG) Pt goals is to improve mobility of R shoulder to 75% of normal STG Duration 02/20/21 Longterm Goal (LTG) Pt will improve R shoulder AROM with improved function per UE QuickDASH score ( initially 56.81 = 40-59% impairment). LTG Duration 03/10/21 Two Impairment Pain Short Term Goal (STG) Decrease frequency of pain to intermittent without use of medications with sleep disturbance no more than 1x/ night. STG Duration 02/20/21 Head Transfer Clerk Goal (LTG) Decrease pain 0/10 with pt at prior level of sleep ability. LTG Duration 03/10/21 One Impairment Pt lacks appropriate self care HEP Short Term Goal (STG) Pt will be educated in best positioning to decrease R shoulder pain and for use of cryotherapy for pain management. STG Duration 12/24/20 Longterm Goal (LTG) Pt will be independent in self care HEP of R shoulder/neck ROM ex's and R shoulder/neck/ scpaular stabilization ex's. LTG Duration 03/10/21 Assessment Summary Assessment Pt presents with soft tissue dysfunction of the R shoulder and neck. She was too guarded to assess her R shoulder PROM or to perform special tests of the shoulder and neck, to determine specific soft tissue involvement. She demonstrates limited R shoulder and cervical AROM, UE decreased functional mobility and decreased R shoulder/ elbow strength due to pain. Her UE QuickDASH score indicates she is 40-59% impaired. The pt will benefit from skilled physical therapy to achieve the above stated goals, but the pt is aware that the limitations she has on her insurance and if there is soft tissue injury, her recovery may take longer than what the current plan of care timeframe is set for. Physical Therapy Plan Frequency and Duration Frequency of Treatment 2x/Week Plan of Care Start Date 12/10/20 Plan of Care End Date 03/10/21 Therapeutic Interventions Therapeutic Interventions Home Exercise Program,Joint Mobilizations,Manual Therapy, Patient/Caregiver Education, Self-Care/Home Management,Soft Tissue Mobilization,Taping, Therapeutic Exercises Modalities Cold Pack/Ice Massage,Electric Stimulation,Hot Packs, Infrared Therapy,Ultrasound Next Visit Focus/Plan Next Note Type Treatment Note Next Visit Plan Check R shoulder PROM and perform special tests if pt is less guarded. Review I/S HEP and issue handouts for HEP. Modalities to decrease pain and muscle guarding (MH/ES to end, possibly US or [facility] to start). R shoulder AAROM in supine (might try overdoor pully) and C/S ROM stretches. Start R shoulder/scapular stabilization ex's when tolerated. Plan of Care Dates Plan of Care Start Date 12/10/20 Plan of Care End Date 03/10/21 Electronically Signed by: Bettie Bowers, PT 12/10/20 [id number] Please Sign and Return: I have reviewed this Plan of Care and certify that the skilled therapy services above are required to meet the patient?s needs. Physician Signature Date Printed Name and Credentials Clinical Instructor Signature Printed Name and Credentials
--- NOTE | 2020-12-13 14:00 | PT-OP ANOTE ---
Pt did not show for today's appt, called and left message regarding. Reminded of next appt on 12/20 at 230 with MUNITIONS WORKER and 12/24 at 1500 with PT. Suggested calling if need to cancel appt but that given limited NS and or cancel before risk for DC if noncompliant with appts.
--- NOTE | 2021-01-31 16:45 | PT.OPDS ---
Current Diagnoses Pain in right shoulder (12/10/20) Muscle weakness (generalized) (12/10/20) Pain in right arm (12/10/20) Visit Care Team Role Provider Type TONI Hager Attending Provider Advanced Sparmaker Family Provider Primary Care Provider Referring Provider Specialty: Family Practice Address: [address] [place] [address], [facility] [place], [address] Email: [email or web address] Visit Number Visit Number 1 Discharge Summary PT-OP-B Current Condition Start: 12/10/20 12:18 Freq: Status: Active Protocol: Document 12/10/20 13:35 LRN (Rec: 12/10/20 14:57 LRN [id number]) Current Condition History of Current Condition Onset Date 2 months ago. Current Complaints Having R constant ache in lateral shoulder, neck & upper back History of Current Condition R shoulder pain (pt R handed). 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 After a month and half, was cleaning and the same thing happened. So, went to see her primary CARDIOTHORACIC ANESTHESIA TECHNICIAN. Was given Toradol and msDanny relaxor. Pain is worse at night when trying to sleep. Sometimes the pain is a shocking, shooting pain, otherwise has constant ache. Prior Treatments and Tests No imaging. Future Testing and Treatments Planned None Developmental History Developmental History Lower back and pain for years. Neck pain normally 2-3/10. Treatment Goals Patient/Caregiver Goals Pt goals is to not have the pain all the time, improve mobility of R shoulder, less pain with carrying and unpacking groceries. 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 Baseline Function- Recreation/Hobbies Works on her own property. Baseline Function- Other Able to sleep through the night with no trouble falling asleep. Current Functional Impairments (Reported) Functional Limitations- ADL's Limited with vaccuming (uses L hand now), opening a jar or refridgerator is hard, reaching opposite shoulder. 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 Functional Limitations- Other Wakes a couple times during the night and takes Toradol to sleep (also once during the day). Tries not to take th ms relaxor (cyclobenzaprine) Personal Factors Other Personal Factors That May Effect History of Neck/Back pain Therapy/Recovery rated 2-3/10 pain, depression PT-OP-C Subjective Start: 12/10/20 12:18 Freq: Status: Active Protocol: Document 12/10/20 13:35 LRN (Rec: 12/10/20 14:57 LRN [id number]) Patient Questionnaires Quick Dash- Upper Extremity Quick Dash UE Score 56.81 Quick Dash UE Impairment 40 to 59% Impaired (Score 40- 59) OP-PT Pain Assessment Pain Assessment Grid Paper Pain Assessment Grid Completed Yes Location R Shoulder Pain Location Details R lateral, upper shoulder, and posterior shoulder Intensity 5 Scale Used Numeric (0 - 10) Description Aching,Sharp,Shooting Description- Other Sometimes sharp, shooting if moving arm, with snap. Frequency Intermittent Pain Aggravating Factors Changing Position,Lifting Pain Alleviating Factors Cold,Heat,Medication Other Pain Alleviating Factors Heat works the best. Cold makes it more achy PT-OP-E Functional Tests Start: 12/10/20 12:18 Freq: Status: Active Protocol: Document 12/10/20 13:35 LRN (Rec: 12/10/20 14:57 LRN [id number]) Functional Tests Apley's Scratch Test Action 1- Left Back of shoulder Action 1- Right Top of shoulder Action 2- Left T3 Action 2- Right Back of head Action 3- Left T12 Action 3- Right Lateral buttock PT-OP-J Posture/Palpation/Skin Start: 12/10/20 12:18 Freq: Status: Active Protocol: Document 12/10/20 13:35 LRN (Rec: 12/10/20 14:57 LRN [id number]) Posture Evaluation Position Standing T-Spine Posture Flattened Shoulder Posture (R) Elevated Scapula Posture (R) Retracted,(R) Elevated Arm Posture (L) Internally Rotated,(R) Internally Rotated Knee Posture (R) Genu Valgus,(L) Ext. Tibial Torsion Comments Posture Comments Dowagers hump, flattened Upper T//S, L LE ER's mildly. Palpation Assessment Location R shoulder Palpation Location Deltoid, [place], [place], Subscap, Infraspin, Supra, Rhomboids. Palpation Findings Soft Tissue Tightness,Muscle Guarding,Tenderness Palpation Details Sometimes pt notes R wrist extensors are sore. PT-OP-K Range of Motion Start: 12/10/20 12:18 Freq: Status: Active Protocol: Document 12/10/20 13:35 LRN (Rec: 12/10/20 14:57 LRN [id number]) Cervical Spine Range of Motion Cervical Spine Active Percentage Testing Position Sitting Flexion 45 Extension 35 Rotation Left 43 Rotation Right 41 Lateral Flexion Left 30 Lateral Flexion Right 20 ROM Limitations Pain Comments SB, pain is on opposite side of movement Shoulder Goniometric Range of Motion Shoulder Right Passive Shoulder ROM WFL No Testing Position Supine Comments Pt was too guarded to allow for PROM of shoulder Right Active Shoulder ROM WFL No Testing Position Sitting Flexion 90 Extension 25 Abduction 82 External Rotation at 0 degrees Abduction 27 Internal Rotation Behind Back (text) Side of buttock Comments Flexion - Max flexion is 108 deg's. Ext is with elbow flexed AB - pops with mvmt Left Active Shoulder ROM WFL Yes Testing Position Sitting Flexion 162 Extension 65 Abduction 180 External Rotation at 0 degrees Abduction 30 Internal Rotation Behind Back (text) T12 Comments Ext is with elbow flexed Elbow/Forearm Range of Motion Elbow/Forearm Right Comments WNL Left Comments WNL PT-OP-M Strength Start: 12/10/20 12:18 Freq: Status: Active Protocol: Document 12/10/20 13:35 LRN (Rec: 12/10/20 14:57 LRN [id number]) Cervical Spine Strength Cervical Spine Manual Muscle Testing Testing Position Sitting Flexion (C1-2) 5 Normal Extension 5 Normal Rotation Left 5 Normal Rotation Right 5 Normal Lateral Flexion Left (C3) 5 Normal Lateral Flexion Right (C3) 5 Normal Shoulder Strength Shoulder Manual Muscle Testing Right Comments Not able to formally assess due to pt's guarded nature. Based on pt's limited AROM her strength is generally 3- to 3 /5. Left Comments Generally 5/5 Elbow/Forearm Strength Elbow and Forearm Manual Muscle Testing Right Flexion (C6) 3+ Fair+ Extension (C7) 4- Good- Comments Limited due to pain at shoulder Left Flexion (C6) 5 Normal Extension (C7) 5 Normal PT-OP-T Assessment and Plan Start: 12/10/20 12:18 Freq: Status: Active Protocol: Document 01/31/21 16:36 LRN (Rec: 01/31/21 16:44 LRN [id number]) Physical Therapy Assessment Goals Four Impairment Decreased R shoulder strength (R shoulder generally 3/5, L shoulder 5/5) Short Term Goal (STG) Improve R shoulder strength 1/ 2-1 grade with pt able to open jars without or mild difficulty. STG Duration 02/20/21 (01/31/21: GOAL NOT MET. Pt did not complete rehab) Prison Goal (LTG) Improve R shoulder strength to no less than 4/5 with ability to carry and unpacking groceries without pain. LTG Duration 03/10/21 (01/31/21: GOAL NOT MET. Pt did not complete rehab) Three Impairment Decreased R shoulder AROM Short Term Goal (STG) Pt goals is to improve mobility of R shoulder to 75% of normal STG Duration 02/20/21 (01/31/21: GOAL NOT MET. Pt did not complete rehab) Hunter Trapper Goal (LTG) Pt will improve R shoulder AROM with improved function per UE QuickDASH score ( initially 56.81 = 40-59% impairment). LTG Duration 03/10/21 (01/31/21: GOAL NOT MET. Pt did not complete rehab) Two Impairment Pain Short Term Goal (STG) Decrease frequency of pain to intermittent without use of medications with sleep disturbance no more than 1x/ night. STG Duration 02/20/21 (01/31/21: GOAL NOT MET. Pt did not complete rehab) Prison Goal (LTG) Decrease pain 0/10 with pt at prior level of sleep ability. LTG Duration 03/10/21 (01/31/21: GOAL NOT MET. Pt did not complete rehab) One Impairment Pt lacks appropriate self care HEP Short Term Goal (STG) Pt will be educated in best positioning to decrease R shoulder pain and for use of cryotherapy for pain management. STG Duration 12/24/20 (01/31/21: GOAL NOT MET. Pt did not complete rehab) Hunter Trapper Goal (LTG) Pt will be independent in self care HEP of R shoulder/neck ROM ex's and R shoulder/neck/ scpaular stabilization ex's. LTG Duration 03/10/21 (01/31/21: GOAL NOT MET. Pt did not complete rehab) Assessment Summary Assessment Pt was seen only for her initial evaluation on 12/10/20. She did not show for her next 3 appointments. Pt was called and message left regarding the first missed appointment and reminded of her next appointments and of the cancellation/no show policy. The pt is being discharged from therapy due to lack of attendance. Physical Therapy Plan Discharge Physical Therapy Discharge Reasons No Longer Attending PT Discharge Comments Pt only attended her initial evaluation. Thank you for your referral.
== END 2021-02-07 09:58 ==
LOC: PHYS 13:12
PROVIDERS: Family Provider Internal Medicine; PCP Internal Medicine; Referring Provider Internal Medicine; Visit Provider Internal Medicine
DX: M25.511 Pain in right shoulder (principal); M62.81 Muscle weakness (generalized); M79.601 Pain in right arm
CPT/HCPCS: 97162; 97535

== ENCOUNTER → 2021-11-21 08:21 | Outpatient (CLI) | payer OTHER, MEDICAID, SELFPAY ==
--- NOTE | 2021-11-21 | DI.MG.S_ITS ---
BILATERAL DIGITAL SCREENING MAMMOGRAM 3D/2D WITH CAD: 11/21/2021 CLINICAL: Routine screening. Family history of breast cancer. Comparison is made to exam dated: 08/26/2017 mammogram - [facility]. The tissue of both breasts is heterogeneously dense. This may lower the sensitivity of mammography. Current study was also evaluated with a Computer Aided Detection (CAD) system. No significant masses, calcifications, or other findings are seen in either breast. There has been no significant interval change. IMPRESSION: NEGATIVE There is no mammographic evidence of malignancy. A 1 year screening mammogram is recommended. Based on the Tyrer Cuzick model (a risk assessment model) the patient's lifetime risk is 10.2% and her 10 year risk is 1.8%. According to the ACR, ACS, and NCCN guidelines, an annual breast MRI exam along with mammogram is recommended if the patient's lifetime risk is 20% or greater. This exam was interpreted at Station ID: [id number]. NOTE: For mammograms, a report in lay terms will be sent to the patient. Approximately 15% of breast malignancies will not be visualized mammographically. In the management of a palpable breast mass, a negative mammogram must not discourage biopsy of a clinically suspicious lesion. Electronically Signed By: George randle/tevin:11/21/2021 11:35:31 letter sent: Normal Exam ACR BI-RADS Category 1: Negative [id number]
== END ==
PROVIDERS: Family Provider Internal Medicine; PCP Internal Medicine; Referring Provider Internal Medicine; Visit Provider Internal Medicine
DX: Z12.31 Encounter for screening mammogram for malignant neoplasm of breast (principal); Z80.3 Family history of malignant neoplasm of breast
CPT/HCPCS: 77063; 77067

== ENCOUNTER → 2023-07-30 07:59 | Outpatient (CLI) | payer OTHER, MEDICAID, SELFPAY ==
--- NOTE | 2023-07-30 08:00 | DI.MG.S_ITS ---
BILATERAL DIGITAL SCREENING MAMMOGRAM 3D/2D WITH CAD: 07/30/2023 CLINICAL: Routine screening. Family history of breast cancer. Comparison is made to exams dated: 11/21/2021 mammogram and 08/26/2017 mammogram - [facility]. Both breasts are heterogeneously dense, which may obscure small masses (category c / 51-75% glandular tissue). Current study was also evaluated with a Computer Aided Detection (CAD) system. No significant masses, calcifications, or other findings are seen in either breast. There has been no significant interval change. IMPRESSION: NEGATIVE There is no mammographic evidence of malignancy. A 1 year screening mammogram is recommended. Based on the Tyrer Cuzick model (a risk assessment model) the patient's lifetime risk is 10.1% and her 10 year risk is 2.0%. According to the ACR, ACS, and NCCN guidelines, an annual breast MRI exam along with mammogram is recommended if the patient's lifetime risk is 20% or greater. This exam was interpreted at Station ID: [id number]. NOTE: For mammograms, a report in lay terms will be sent to the patient. Approximately 15% of breast malignancies will not be visualized mammographically. In the management of a palpable breast mass, a negative mammogram must not discourage biopsy of a clinically suspicious lesion. Electronically Signed By: Vero marina/tevin:07/31/2023 13:38:35 letter sent: Normal Exam ACR BI-RADS Category 1: Negative [id number]
== END ==
PROVIDERS: Family Provider Internal Medicine; PCP Internal Medicine; Referring Provider Internal Medicine; Visit Provider Internal Medicine
DX: Z12.31 Encounter for screening mammogram for malignant neoplasm of breast (principal); Z80.3 Family history of malignant neoplasm of breast; R92.333 Mammographic heterogeneous density, bilateral breasts
CPT/HCPCS: 77063; 77067